=== PATIENT | male | born 1985 | race Two or more races ===

== ENCOUNTER 2022-09-14 17:39 | Emergency (ER) | payer OTHER ==
[~2022-09-14] VITALS: Ht 152.4 cm; Wt 76.0 kg
[2022-09-14] MEDS ORDERED: NEOMYCIN/BACITRACIN/POLYMYXIN B OINTMENT PACKET TP ONE (21:00)
[2022-09-14 21:11] VITALS: BP 100/60
== END 2022-09-14 21:44 | disposition home or self-care (01) ==
LOC: EMS 17:46
DX: T22.10XA Burn of first degree of shoulder and upper limb, except wrist and hand, unspecified site, initial encounter (principal); T31.0 Burns involving less than 10% of body surface; F12.90 Cannabis use, unspecified, uncomplicated
CPT/HCPCS: 16020; 99282; Z7502; Z7610